=== PATIENT | male | born 1985 | race Caucasian/White ===

== ENCOUNTER 2021-06-15 16:42 | Inpatient (IN) | payer OTHER ==
[2021-06-15] MEDS ORDERED: MAGNESIUM HYDROX 2400MG/30ML ORAL SUSPENSION 30 ML CUP PO PRN (19:14)
[2021-06-15] MEDS ORDERED: P-EPHED 60MG/TRIPROLIDI 2.5MG TABLET PO PRN (19:14)
[2021-06-15] MEDS ORDERED: ACETAMINOPHEN 325 MG TABLET (FP) PO PRN (19:14)
[2021-06-15] MEDS ORDERED: guaiFENesin 200 MG/10 ML 10 ML UNIT-DOSE CUPS PO PRN (19:14)
[2021-06-15] MEDS ORDERED: MAGNESIUM CITRATE 300 ML BOTTLE PO PRN (19:14)
[2021-06-15] MEDS ORDERED: LOPERAMIDE HCL 2 MG CAPSULE PO PRN (19:14)
[2021-06-15] MEDS ORDERED: MAG HYDROX/AL HYDROX/SIMETH 30 ML UNIT-DOSE CUP PO PRN (19:14)
[2021-06-15 19:35] VITALS: BMI 23.1
[2021-06-15] MEDS: MELATONIN 5 MG TABLETS PO SCH (21:12)
[2021-06-15] MEDS: hydrOXYzine PAMOATE 25 MG CAPSULE (FP) PO SCH (21:13)
[2021-06-15] MEDS: IBUPROFEN 400 MG TABLET (FP) PO PRN (21:13)
[2021-06-15] MEDS: NICOTINE POLACRILEX 2 MG GUM BC PRN (21:13)
[2021-06-15] MEDS: THIAMINE HCL 100 MG TABLET (FP) PO SCH (21:13)
[2021-06-15] MEDS: NICOTINE 7 MG/24 HOURS TOPICAL PATCH TD SCH (21:14)
[2021-06-15] MEDS: NICOTINE 21 MG/24 HOURS TOPICAL PATCH TD SCH (21:14)
[2021-06-16] MEDS: hydrOXYzine PAMOATE 25 MG CAPSULE (FP) PO SCH ×5 (06:40→21:08)
[2021-06-16] MEDS: PRENATAL VITAMINS W/ FOLIC ACID TABLET (FP) PO SCH (10:15)
[2021-06-16] MEDS: NICOTINE 21 MG/24 HOURS TOPICAL PATCH TD SCH (10:15)
[2021-06-16] MEDS: NICOTINE POLACRILEX 2 MG GUM BC PRN ×3 (10:16→21:08)
[2021-06-16] MEDS: NICOTINE 7 MG/24 HOURS TOPICAL PATCH TD SCH (10:16)
[2021-06-16 10:32] LABS: HEMATOCRIT 40.3 % (35.4-49); HEMOGLOBIN 13.7 GM/dL (11.7-16.9); MCH 28.4 pg (25.7-33.7); MCHC 33.9 g/dl (32.0-35.9); MEAN CELL VOLUME 83.7 fl (80-96); MEAN PLT VOLUME 8.2 fl (7.5-11.1); PLATELET COUNT 308 10^3/uL (134-434); RBC 4.82 M/mm3 (4.00-5.60); RDW 14.2 % (11.9-15.9)
[2021-06-16] MEDS: BUPRENORPHINE/NALOXONE 12 MG-3 MG SL FILM PACKET SL SCH (10:45)
[2021-06-16 10:50] LABS: PH,URINE 7.5 (5.0-8.0); URINE APPEARANCE CLEAR; URINE BILIRUBIN NEGATIVE (NEGATIVE); URINE COLOR YELLOW; URINE GLUCOSE (UA) NEGATIVE (NEGATIVE); URINE KETONE NEGATIVE (NEGATIVE); URINE LEUK ESTERASE NEGATIVE (NEGATIVE); URINE NITRITE NEGATIVE (NEGATIVE); URINE PROTEIN NEGATIVE (NEGATIVE); URINE UROBILINOGEN 0.2 mg/dL (0.2-1.0)
[2021-06-16 10:59] LABS: ALBUMIN 4.1 g/dl (3.4-5.0)
[2021-06-16 11:00] LABS: BLOOD UREA NITROGEN 10.6 mg/dL (7-18); CALCIUM 9.7 mg/dL (8.5-10.1)
[2021-06-16 11:03] LABS: CREATININE 0.8 mg/dL (0.55-1.3)
[2021-06-16 11:04] LABS: BILIRUBIN,TOTAL 0.4 mg/dL (0.2-1); TOT PROT 7.2 g/dl (6.4-8.2)
[2021-06-16] MEDS: LURASIDONE HCL 40 MG TABLET PO SCH (14:42)
[2021-06-16] MEDS: THIAMINE HCL 100 MG TABLET (FP) PO SCH (21:07)
[2021-06-16] MEDS: MELATONIN 5 MG TABLETS PO SCH (21:07)
[2021-06-16] MEDS: QUEtiapine FUMARATE 100 MG TABLET (FP) PO SCH (21:08)
[2021-06-17] MEDS: NICOTINE POLACRILEX 2 MG GUM BC PRN ×2 (06:24→15:15)
[2021-06-17] MEDS: hydrOXYzine PAMOATE 25 MG CAPSULE (FP) PO SCH (06:24)
[2021-06-17] MEDS ORDERED: FLUoxetine HCL 10 MG CAPSULE ONE (08:38)
[2021-06-17] MEDS ORDERED: FLUoxetine HCL 20 MG CAPSULE ONE (08:38)
[2021-06-17] MEDS ORDERED: hydrOXYzine PAMOATE 25 MG CAPSULE (FP) PO PRN (08:59)
[2021-06-17] MEDS ORDERED: FLUoxetine HCL 20 MG CAPSULE PO SCH (10:00)
[2021-06-17] MEDS: FLUOXETINE HCL 40 MG, FLUOXETINE HCL 10 MG PO SCH (10:10)
[2021-06-17] MEDS: BUPRENORPHINE/NALOXONE 12 MG-3 MG SL FILM PACKET SL SCH (10:11)
[2021-06-17] MEDS: NICOTINE 21 MG/24 HOURS TOPICAL PATCH TD SCH (10:11)
[2021-06-17] MEDS: LURASIDONE HCL 40 MG TABLET PO SCH (10:11)
[2021-06-17] MEDS: NICOTINE 7 MG/24 HOURS TOPICAL PATCH TD SCH (10:12)
[2021-06-17] MEDS: PRENATAL VITAMINS W/ FOLIC ACID TABLET (FP) PO SCH (10:12)
[2021-06-17] MEDS: THIAMINE HCL 100 MG TABLET (FP) PO SCH (22:55)
[2021-06-17] MEDS: MELATONIN 5 MG TABLETS PO SCH (22:55)
[2021-06-17] MEDS: QUEtiapine FUMARATE 100 MG TABLET (FP) PO SCH (22:55)
[2021-06-18] MEDS: NICOTINE POLACRILEX 2 MG GUM BC PRN ×4 (07:00→21:17)
[2021-06-18] MEDS ORDERED: FLUoxetine HCL 20 MG CAPSULE ONE (08:49)
[2021-06-18] MEDS ORDERED: FLUoxetine HCL 10 MG CAPSULE ONE (08:50)
[2021-06-18] MEDS: BUPRENORPHINE/NALOXONE 12 MG-3 MG SL FILM PACKET SL SCH (09:38)
[2021-06-18] MEDS: LURASIDONE HCL 40 MG TABLET PO SCH (09:39)
[2021-06-18] MEDS: NICOTINE 21 MG/24 HOURS TOPICAL PATCH TD SCH (09:39)
[2021-06-18] MEDS: NICOTINE 7 MG/24 HOURS TOPICAL PATCH TD SCH (09:39)
[2021-06-18] MEDS: FLUOXETINE HCL 40 MG, FLUOXETINE HCL 10 MG PO SCH (09:39)
[2021-06-18] MEDS: PRENATAL VITAMINS W/ FOLIC ACID TABLET (FP) PO SCH (09:39)
[2021-06-18] MEDS: IBUPROFEN 400 MG TABLET (FP) PO PRN (09:40)
[2021-06-18] MEDS: QUEtiapine FUMARATE 100 MG TABLET (FP) PO SCH (21:16)
[2021-06-18] MEDS: MELATONIN 5 MG TABLETS PO SCH (21:16)
[2021-06-18] MEDS: THIAMINE HCL 100 MG TABLET (FP) PO SCH (21:16)
[2021-06-19] MEDS ORDERED: FLUoxetine HCL 10 MG CAPSULE ONE (08:45)
[2021-06-19] MEDS ORDERED: FLUoxetine HCL 20 MG CAPSULE ONE (08:45)
[2021-06-19] MEDS: LURASIDONE HCL 40 MG TABLET PO SCH (09:51)
[2021-06-19] MEDS: NICOTINE 7 MG/24 HOURS TOPICAL PATCH TD SCH (09:51)
[2021-06-19] MEDS: PRENATAL VITAMINS W/ FOLIC ACID TABLET (FP) PO SCH (09:51)
[2021-06-19] MEDS: FLUOXETINE HCL 40 MG, FLUOXETINE HCL 10 MG PO SCH (09:51)
[2021-06-19] MEDS: NICOTINE 21 MG/24 HOURS TOPICAL PATCH TD SCH (09:51)
[2021-06-19] MEDS: BUPRENORPHINE/NALOXONE 12 MG-3 MG SL FILM PACKET SL SCH (09:51)
[2021-06-19] MEDS: NICOTINE POLACRILEX 2 MG GUM BC PRN ×4 (09:53→21:27)
[2021-06-19] MEDS: QUEtiapine FUMARATE 100 MG TABLET (FP) PO SCH (21:26)
[2021-06-19] MEDS: THIAMINE HCL 100 MG TABLET (FP) PO SCH (21:27)
[2021-06-19] MEDS: MELATONIN 5 MG TABLETS PO SCH (21:27)
[2021-06-20] MEDS: NICOTINE 21 MG/24 HOURS TOPICAL PATCH TD SCH (09:39)
[2021-06-20] MEDS: PRENATAL VITAMINS W/ FOLIC ACID TABLET (FP) PO SCH (09:39)
[2021-06-20] MEDS: FLUOXETINE HCL 40 MG, FLUOXETINE HCL 10 MG PO SCH (09:39)
[2021-06-20] MEDS: BUPRENORPHINE/NALOXONE 12 MG-3 MG SL FILM PACKET SL SCH (09:39)
[2021-06-20] MEDS: NICOTINE 7 MG/24 HOURS TOPICAL PATCH TD SCH (09:40)
[2021-06-20] MEDS: LURASIDONE HCL 40 MG TABLET PO SCH (09:40)
[2021-06-20] MEDS: NICOTINE POLACRILEX 2 MG GUM BC PRN ×5 (09:41→21:20)
[2021-06-20] MEDS: MELATONIN 5 MG TABLETS PO SCH (21:16)
[2021-06-20] MEDS: THIAMINE HCL 100 MG TABLET (FP) PO SCH (21:16)
[2021-06-20] MEDS: BUPRENORPHINE/NALOXONE 2 MG/0.5 MG FILM PACKET SL SCH (21:17)
[2021-06-20] MEDS: QUEtiapine FUMARATE 100 MG TABLET (FP) PO SCH (21:17)
[2021-06-20] MEDS: IBUPROFEN 400 MG TABLET (FP) PO PRN (21:18)
[2021-06-21] MEDS ORDERED: FLUoxetine HCL 10 MG CAPSULE ONE (08:35)
[2021-06-21] MEDS ORDERED: FLUoxetine HCL 20 MG CAPSULE ONE (08:35)
[2021-06-21] MEDS: PRENATAL VITAMINS W/ FOLIC ACID TABLET (FP) PO SCH (09:58)
[2021-06-21] MEDS: BUPRENORPHINE/NALOXONE 12 MG-3 MG SL FILM PACKET SL SCH (09:58)
[2021-06-21] MEDS: FLUOXETINE HCL 40 MG, FLUOXETINE HCL 10 MG PO SCH (09:58)
[2021-06-21] MEDS: NICOTINE 21 MG/24 HOURS TOPICAL PATCH TD SCH (09:58)
[2021-06-21] MEDS: NICOTINE 7 MG/24 HOURS TOPICAL PATCH TD SCH (09:59)
[2021-06-21] MEDS: LURASIDONE HCL 40 MG TABLET PO SCH (09:59)
[2021-06-21] MEDS: NICOTINE POLACRILEX 2 MG GUM BC PRN ×4 (10:01→21:22)
[2021-06-21] MEDS: THIAMINE HCL 100 MG TABLET (FP) PO SCH (21:21)
[2021-06-21] MEDS: QUEtiapine FUMARATE 100 MG TABLET (FP) PO SCH (21:21)
[2021-06-21] MEDS: MELATONIN 5 MG TABLETS PO SCH (21:21)
[2021-06-21] MEDS: BUPRENORPHINE/NALOXONE 2 MG/0.5 MG FILM PACKET SL SCH (21:22)
[2021-06-22] MEDS ORDERED: FLUoxetine HCL 20 MG CAPSULE ONE (08:33)
[2021-06-22] MEDS ORDERED: FLUoxetine HCL 10 MG CAPSULE ONE (08:34)
[2021-06-22] MEDS: PRENATAL VITAMINS W/ FOLIC ACID TABLET (FP) PO SCH (09:46)
[2021-06-22] MEDS: LURASIDONE HCL 40 MG TABLET PO SCH (09:46)
[2021-06-22] MEDS: NICOTINE 21 MG/24 HOURS TOPICAL PATCH TD SCH (09:46)
[2021-06-22] MEDS: FLUOXETINE HCL 40 MG, FLUOXETINE HCL 10 MG PO SCH (09:46)
[2021-06-22] MEDS: NICOTINE 7 MG/24 HOURS TOPICAL PATCH TD SCH (09:46)
[2021-06-22] MEDS: BUPRENORPHINE/NALOXONE 12 MG-3 MG SL FILM PACKET SL SCH (09:46)
[2021-06-22] MEDS: NICOTINE POLACRILEX 2 MG GUM BC PRN ×3 (09:50→16:15)
[2021-06-22] MEDS: NICOTINE 10 MG CARTRIDGE (INHALER) IH PRN (18:31)
[2021-06-22] MEDS: IBUPROFEN 400 MG TABLET (FP) PO PRN (21:08)
[2021-06-22] MEDS: THIAMINE HCL 100 MG TABLET (FP) PO SCH (21:08)
[2021-06-22] MEDS: MELATONIN 5 MG TABLETS PO SCH (21:08)
[2021-06-22] MEDS: QUEtiapine FUMARATE 100 MG TABLET (FP) PO SCH (21:08)
[2021-06-22] MEDS: BUPRENORPHINE/NALOXONE 2 MG/0.5 MG FILM PACKET SL SCH (21:09)
[2021-06-23] MEDS: NICOTINE POLACRILEX 2 MG GUM BC PRN ×3 (06:33→16:13)
[2021-06-23] MEDS ORDERED: FLUoxetine HCL 20 MG CAPSULE ONE (08:54)
[2021-06-23] MEDS ORDERED: FLUoxetine HCL 10 MG CAPSULE ONE (08:54)
[2021-06-23] MEDS: NICOTINE 21 MG/24 HOURS TOPICAL PATCH TD SCH (10:09)
[2021-06-23] MEDS: NICOTINE 7 MG/24 HOURS TOPICAL PATCH TD SCH (10:09)
[2021-06-23] MEDS: BUPRENORPHINE/NALOXONE 12 MG-3 MG SL FILM PACKET SL SCH (10:09)
[2021-06-23] MEDS: FLUOXETINE HCL 40 MG, FLUOXETINE HCL 10 MG PO SCH (10:09)
[2021-06-23] MEDS: PRENATAL VITAMINS W/ FOLIC ACID TABLET (FP) PO SCH (10:09)
[2021-06-23] MEDS: NICOTINE 10 MG CARTRIDGE (INHALER) IH PRN (10:10)
[2021-06-23] MEDS: LURASIDONE HCL 40 MG TABLET PO SCH (10:10)
[2021-06-23] MEDS: QUEtiapine FUMARATE 100 MG TABLET (FP) PO SCH (21:26)
[2021-06-23] MEDS: THIAMINE HCL 100 MG TABLET (FP) PO SCH (21:27)
[2021-06-23] MEDS: MELATONIN 5 MG TABLETS PO SCH (21:27)
[2021-06-23] MEDS: IBUPROFEN 400 MG TABLET (FP) PO PRN (21:28)
[2021-06-23] MEDS: BUPRENORPHINE/NALOXONE 2 MG/0.5 MG FILM PACKET SL SCH (21:28)
[2021-06-24] MEDS ORDERED: FLUoxetine HCL 20 MG CAPSULE ONE (08:44)
[2021-06-24] MEDS ORDERED: FLUoxetine HCL 10 MG CAPSULE ONE (08:45)
[2021-06-24] MEDS: PRENATAL VITAMINS W/ FOLIC ACID TABLET (FP) PO SCH (09:59)
[2021-06-24] MEDS: BUPRENORPHINE/NALOXONE 12 MG-3 MG SL FILM PACKET SL SCH (09:59)
[2021-06-24] MEDS: NICOTINE 21 MG/24 HOURS TOPICAL PATCH TD SCH (09:59)
[2021-06-24] MEDS: FLUOXETINE HCL 40 MG, FLUOXETINE HCL 10 MG PO SCH (09:59)
[2021-06-24] MEDS: NICOTINE 7 MG/24 HOURS TOPICAL PATCH TD SCH (09:59)
[2021-06-24] MEDS: LURASIDONE HCL 40 MG TABLET PO SCH (10:00)
[2021-06-24] MEDS: NICOTINE 10 MG CARTRIDGE (INHALER) IH PRN (10:00)
[2021-06-24] MEDS: NICOTINE POLACRILEX 2 MG GUM BC PRN ×3 (13:59→20:02)
[2021-06-24] MEDS: MELATONIN 5 MG TABLETS PO SCH (21:24)
[2021-06-24] MEDS: THIAMINE HCL 100 MG TABLET (FP) PO SCH (21:24)
[2021-06-24] MEDS: QUEtiapine FUMARATE 100 MG TABLET (FP) PO SCH (21:24)
[2021-06-24] MEDS: BUPRENORPHINE/NALOXONE 2 MG/0.5 MG FILM PACKET SL SCH (21:25)
[2021-06-25] MEDS: NICOTINE POLACRILEX 2 MG GUM BC PRN ×5 (06:33→21:45)
[2021-06-25] MEDS ORDERED: FLUoxetine HCL 10 MG CAPSULE ONE (09:03)
[2021-06-25] MEDS ORDERED: FLUoxetine HCL 20 MG CAPSULE ONE (09:03)
[2021-06-25] MEDS: PRENATAL VITAMINS W/ FOLIC ACID TABLET (FP) PO SCH (09:41)
[2021-06-25] MEDS: BUPRENORPHINE/NALOXONE 12 MG-3 MG SL FILM PACKET SL SCH (09:41)
[2021-06-25] MEDS: NICOTINE 21 MG/24 HOURS TOPICAL PATCH TD SCH (09:41)
[2021-06-25] MEDS: FLUOXETINE HCL 40 MG, FLUOXETINE HCL 10 MG PO SCH (09:42)
[2021-06-25] MEDS: NICOTINE 7 MG/24 HOURS TOPICAL PATCH TD SCH (09:42)
[2021-06-25] MEDS: LURASIDONE HCL 40 MG TABLET PO SCH (09:43)
[2021-06-25] MEDS: NICOTINE 10 MG CARTRIDGE (INHALER) IH PRN (12:45)
[2021-06-25] MEDS: THIAMINE HCL 100 MG TABLET (FP) PO SCH (21:27)
[2021-06-25] MEDS: MELATONIN 5 MG TABLETS PO SCH (21:27)
[2021-06-25] MEDS: QUEtiapine FUMARATE 100 MG TABLET (FP) PO SCH (21:27)
[2021-06-25] MEDS: BUPRENORPHINE/NALOXONE 2 MG/0.5 MG FILM PACKET SL SCH (21:28)
[2021-06-26] MEDS: NICOTINE POLACRILEX 2 MG GUM BC PRN ×5 (06:46→21:10)
[2021-06-26] MEDS ORDERED: FLUoxetine HCL 10 MG CAPSULE ONE (08:36)
[2021-06-26] MEDS ORDERED: FLUoxetine HCL 20 MG CAPSULE ONE (08:36)
[2021-06-26] MEDS: LURASIDONE HCL 40 MG TABLET PO SCH (09:39)
[2021-06-26] MEDS: FLUOXETINE HCL 40 MG, FLUOXETINE HCL 10 MG PO SCH (09:39)
[2021-06-26] MEDS: NICOTINE 21 MG/24 HOURS TOPICAL PATCH TD SCH (09:39)
[2021-06-26] MEDS: PRENATAL VITAMINS W/ FOLIC ACID TABLET (FP) PO SCH (09:39)
[2021-06-26] MEDS: BUPRENORPHINE/NALOXONE 12 MG-3 MG SL FILM PACKET SL SCH (09:39)
[2021-06-26] MEDS: NICOTINE 7 MG/24 HOURS TOPICAL PATCH TD SCH (09:40)
[2021-06-26] MEDS: NICOTINE 10 MG CARTRIDGE (INHALER) IH PRN ×3 (09:41→22:29)
[2021-06-26] MEDS: QUEtiapine FUMARATE 100 MG TABLET (FP) PO SCH (21:08)
[2021-06-26] MEDS: THIAMINE HCL 100 MG TABLET (FP) PO SCH (21:08)
[2021-06-26] MEDS: MELATONIN 5 MG TABLETS PO SCH (21:08)
[2021-06-26] MEDS: IBUPROFEN 400 MG TABLET (FP) PO PRN (21:09)
[2021-06-26] MEDS: BUPRENORPHINE/NALOXONE 2 MG/0.5 MG FILM PACKET SL SCH (21:09)
[2021-06-27] MEDS: NICOTINE POLACRILEX 2 MG GUM BC PRN ×4 (06:42→21:54)
[2021-06-27] MEDS ORDERED: FLUoxetine HCL 20 MG CAPSULE ONE (08:47)
[2021-06-27] MEDS ORDERED: FLUoxetine HCL 10 MG CAPSULE ONE (08:47)
[2021-06-27] MEDS: PRENATAL VITAMINS W/ FOLIC ACID TABLET (FP) PO SCH (10:15)
[2021-06-27] MEDS: FLUOXETINE HCL 40 MG, FLUOXETINE HCL 10 MG PO SCH (10:15)
[2021-06-27] MEDS: NICOTINE 21 MG/24 HOURS TOPICAL PATCH TD SCH (10:15)
[2021-06-27] MEDS: LURASIDONE HCL 40 MG TABLET PO SCH (10:15)
[2021-06-27] MEDS: BUPRENORPHINE/NALOXONE 12 MG-3 MG SL FILM PACKET SL SCH (10:15)
[2021-06-27] MEDS: NICOTINE 10 MG CARTRIDGE (INHALER) IH PRN ×3 (10:17→21:52)
[2021-06-27] MEDS: THIAMINE HCL 100 MG TABLET (FP) PO SCH (21:51)
[2021-06-27] MEDS: MELATONIN 5 MG TABLETS PO SCH (21:51)
[2021-06-27] MEDS: QUEtiapine FUMARATE 100 MG TABLET (FP) PO SCH (21:51)
[2021-06-27] MEDS: BUPRENORPHINE/NALOXONE 2 MG/0.5 MG FILM PACKET SL SCH (21:52)
[2021-06-28] MEDS ORDERED: FLUoxetine HCL 20 MG CAPSULE ONE (08:42)
[2021-06-28] MEDS ORDERED: FLUoxetine HCL 10 MG CAPSULE ONE (08:43)
[2021-06-28] MEDS: BUPRENORPHINE/NALOXONE 12 MG-3 MG SL FILM PACKET SL SCH (09:38)
[2021-06-28] MEDS: FLUOXETINE HCL 40 MG, FLUOXETINE HCL 10 MG PO SCH (09:39)
[2021-06-28] MEDS: LURASIDONE HCL 40 MG TABLET PO SCH (09:39)
[2021-06-28] MEDS: PRENATAL VITAMINS W/ FOLIC ACID TABLET (FP) PO SCH (09:39)
[2021-06-28] MEDS: NICOTINE 21 MG/24 HOURS TOPICAL PATCH TD SCH (09:39)
[2021-06-28] MEDS: NICOTINE POLACRILEX 2 MG GUM BC PRN ×4 (09:42→21:10)
[2021-06-28] MEDS: NICOTINE 10 MG CARTRIDGE (INHALER) IH PRN ×2 (11:54→15:37)
[2021-06-28] MEDS: THIAMINE HCL 100 MG TABLET (FP) PO SCH (21:08)
[2021-06-28] MEDS: MELATONIN 5 MG TABLETS PO SCH (21:08)
[2021-06-28] MEDS: QUEtiapine FUMARATE 100 MG TABLET (FP) PO SCH (21:08)
[2021-06-28] MEDS: BUPRENORPHINE/NALOXONE 2 MG/0.5 MG FILM PACKET SL SCH (21:09)
[2021-06-29] MEDS ORDERED: FLUoxetine HCL 10 MG CAPSULE ONE (09:04)
[2021-06-29] MEDS ORDERED: FLUoxetine HCL 20 MG CAPSULE ONE (09:04)
[2021-06-29] MEDS: PRENATAL VITAMINS W/ FOLIC ACID TABLET (FP) PO SCH (10:25)
[2021-06-29] MEDS: BUPRENORPHINE/NALOXONE 12 MG-3 MG SL FILM PACKET SL SCH (10:25)
[2021-06-29] MEDS: FLUOXETINE HCL 40 MG, FLUOXETINE HCL 10 MG PO SCH (10:26)
[2021-06-29] MEDS: NICOTINE 21 MG/24 HOURS TOPICAL PATCH TD SCH (10:26)
[2021-06-29] MEDS: NICOTINE 10 MG CARTRIDGE (INHALER) IH PRN ×3 (10:26→21:54)
[2021-06-29] MEDS: NICOTINE POLACRILEX 2 MG GUM BC PRN ×4 (10:26→22:09)
[2021-06-29] MEDS: LURASIDONE HCL 40 MG TABLET PO SCH (10:26)
[2021-06-29] MEDS: BUPRENORPHINE/NALOXONE 2 MG/0.5 MG FILM PACKET SL SCH ×2 (12:57→21:53)
[2021-06-29] MEDS: MELATONIN 5 MG TABLETS PO SCH (21:53)
[2021-06-29] MEDS: THIAMINE HCL 100 MG TABLET (FP) PO SCH (21:53)
[2021-06-29] MEDS: QUEtiapine FUMARATE 100 MG TABLET (FP) PO SCH (21:54)
[2021-06-29] MEDS: IBUPROFEN 400 MG TABLET (FP) PO PRN (21:55)
[2021-06-30] MEDS: BUPRENORPHINE/NALOXONE 12 MG-3 MG SL FILM PACKET SL SCH (06:30)
[2021-06-30] MEDS: NICOTINE POLACRILEX 2 MG GUM BC PRN ×4 (06:34→17:15)
[2021-06-30] MEDS ORDERED: FLUoxetine HCL 20 MG CAPSULE ONE (08:57)
[2021-06-30] MEDS ORDERED: FLUoxetine HCL 10 MG CAPSULE ONE (08:57)
[2021-06-30] MEDS: NICOTINE 10 MG CARTRIDGE (INHALER) IH PRN (09:00)
[2021-06-30] MEDS: PRENATAL VITAMINS W/ FOLIC ACID TABLET (FP) PO SCH (09:38)
[2021-06-30] MEDS: IBUPROFEN 400 MG TABLET (FP) PO PRN ×2 (09:39→21:04)
[2021-06-30] MEDS: LURASIDONE HCL 40 MG TABLET PO SCH (09:39)
[2021-06-30] MEDS: NICOTINE 21 MG/24 HOURS TOPICAL PATCH TD SCH (09:39)
[2021-06-30] MEDS: FLUOXETINE HCL 40 MG, FLUOXETINE HCL 10 MG PO SCH (09:39)
[2021-06-30] MEDS: BUPRENORPHINE/NALOXONE 2 MG/0.5 MG FILM PACKET SL SCH ×2 (11:46→21:05)
[2021-06-30] MEDS: MELATONIN 5 MG TABLETS PO SCH (21:02)
[2021-06-30] MEDS: QUEtiapine FUMARATE 100 MG TABLET (FP) PO SCH (21:03)
[2021-06-30] MEDS: THIAMINE HCL 100 MG TABLET (FP) PO SCH (21:03)
[2021-07-01] MEDS: BUPRENORPHINE/NALOXONE 12 MG-3 MG SL FILM PACKET SL SCH (06:43)
[2021-07-01] MEDS: NICOTINE POLACRILEX 2 MG GUM BC PRN ×5 (07:19→21:54)
[2021-07-01] MEDS ORDERED: FLUoxetine HCL 20 MG CAPSULE ONE (08:39)
[2021-07-01] MEDS ORDERED: FLUoxetine HCL 10 MG CAPSULE ONE (08:39)
[2021-07-01] MEDS: FLUOXETINE HCL 40 MG, FLUOXETINE HCL 10 MG PO SCH (10:28)
[2021-07-01] MEDS: NICOTINE 21 MG/24 HOURS TOPICAL PATCH TD SCH (10:28)
[2021-07-01] MEDS: PRENATAL VITAMINS W/ FOLIC ACID TABLET (FP) PO SCH (10:28)
[2021-07-01] MEDS: LURASIDONE HCL 40 MG TABLET PO SCH (10:29)
[2021-07-01] MEDS: BUPRENORPHINE/NALOXONE 2 MG/0.5 MG FILM PACKET SL SCH ×2 (12:40→21:53)
[2021-07-01] MEDS: NICOTINE 10 MG CARTRIDGE (INHALER) IH PRN (14:56)
[2021-07-01] MEDS: IBUPROFEN 400 MG TABLET (FP) PO PRN (21:52)
[2021-07-01] MEDS: QUEtiapine FUMARATE 100 MG TABLET (FP) PO SCH (21:53)
[2021-07-01] MEDS: THIAMINE HCL 100 MG TABLET (FP) PO SCH (21:53)
[2021-07-01] MEDS: MELATONIN 5 MG TABLETS PO SCH (21:53)
[2021-07-02] MEDS: BUPRENORPHINE/NALOXONE 12 MG-3 MG SL FILM PACKET SL SCH (06:33)
[2021-07-02] MEDS: NICOTINE POLACRILEX 2 MG GUM BC PRN ×5 (06:49→21:06)
[2021-07-02] MEDS ORDERED: FLUoxetine HCL 20 MG CAPSULE ONE (08:33)
[2021-07-02] MEDS ORDERED: FLUoxetine HCL 10 MG CAPSULE ONE (08:33)
[2021-07-02] MEDS: LURASIDONE HCL 40 MG TABLET PO SCH (09:40)
[2021-07-02] MEDS: FLUOXETINE HCL 40 MG, FLUOXETINE HCL 10 MG PO SCH (09:40)
[2021-07-02] MEDS: NICOTINE 21 MG/24 HOURS TOPICAL PATCH TD SCH (09:40)
[2021-07-02] MEDS: PRENATAL VITAMINS W/ FOLIC ACID TABLET (FP) PO SCH (09:40)
[2021-07-02] MEDS: NICOTINE 10 MG CARTRIDGE (INHALER) IH PRN ×3 (09:41→21:05)
[2021-07-02] MEDS: BUPRENORPHINE/NALOXONE 2 MG/0.5 MG FILM PACKET SL SCH ×2 (12:18→21:05)
[2021-07-02] MEDS: THIAMINE HCL 100 MG TABLET (FP) PO SCH (21:05)
[2021-07-02] MEDS: MELATONIN 5 MG TABLETS PO SCH (21:05)
[2021-07-02] MEDS: QUEtiapine FUMARATE 100 MG TABLET (FP) PO SCH (21:05)
[2021-07-03] MEDS: BUPRENORPHINE/NALOXONE 12 MG-3 MG SL FILM PACKET SL SCH (06:58)
[2021-07-03] MEDS: NICOTINE POLACRILEX 2 MG GUM BC PRN ×4 (06:59→21:44)
[2021-07-03] MEDS ORDERED: FLUoxetine HCL 20 MG CAPSULE ONE (08:32)
[2021-07-03] MEDS ORDERED: FLUoxetine HCL 10 MG CAPSULE ONE (08:32)
[2021-07-03] MEDS: NICOTINE 21 MG/24 HOURS TOPICAL PATCH TD SCH (10:25)
[2021-07-03] MEDS: PRENATAL VITAMINS W/ FOLIC ACID TABLET (FP) PO SCH (10:25)
[2021-07-03] MEDS: LURASIDONE HCL 40 MG TABLET PO SCH (10:25)
[2021-07-03] MEDS: NICOTINE 10 MG CARTRIDGE (INHALER) IH PRN ×3 (10:25→21:43)
[2021-07-03] MEDS: FLUOXETINE HCL 40 MG, FLUOXETINE HCL 10 MG PO SCH (10:25)
[2021-07-03] MEDS: IBUPROFEN 400 MG TABLET (FP) PO PRN (10:36)
[2021-07-03] MEDS: BUPRENORPHINE/NALOXONE 2 MG/0.5 MG FILM PACKET SL SCH ×2 (12:55→21:43)
[2021-07-03] MEDS: MELATONIN 5 MG TABLETS PO SCH (21:42)
[2021-07-03] MEDS: THIAMINE HCL 100 MG TABLET (FP) PO SCH (21:42)
[2021-07-03] MEDS: QUEtiapine FUMARATE 100 MG TABLET (FP) PO SCH (21:43)
[2021-07-04] MEDS: BUPRENORPHINE/NALOXONE 12 MG-3 MG SL FILM PACKET SL SCH (06:48)
[2021-07-04] MEDS: NICOTINE POLACRILEX 2 MG GUM BC PRN ×5 (06:49→21:07)
[2021-07-04] MEDS ORDERED: FLUoxetine HCL 20 MG CAPSULE ONE (08:32)
[2021-07-04] MEDS ORDERED: FLUoxetine HCL 10 MG CAPSULE ONE (08:33)
[2021-07-04] MEDS: LURASIDONE HCL 40 MG TABLET PO SCH (09:36)
[2021-07-04] MEDS: PRENATAL VITAMINS W/ FOLIC ACID TABLET (FP) PO SCH (09:36)
[2021-07-04] MEDS: NICOTINE 21 MG/24 HOURS TOPICAL PATCH TD SCH (09:37)
[2021-07-04] MEDS: FLUOXETINE HCL 40 MG, FLUOXETINE HCL 10 MG PO SCH (09:37)
[2021-07-04] MEDS: NICOTINE 10 MG CARTRIDGE (INHALER) IH PRN ×2 (09:38→19:37)
[2021-07-04] MEDS ORDERED: BUPRENORPHINE/NALOXONE 2 MG/0.5 MG FILM PACKET SL SCH (12:00)
[2021-07-04] MEDS: MELATONIN 5 MG TABLETS PO SCH (21:05)
[2021-07-04] MEDS: THIAMINE HCL 100 MG TABLET (FP) PO SCH (21:05)
[2021-07-04] MEDS: QUEtiapine FUMARATE 100 MG TABLET (FP) PO SCH (21:06)
[2021-07-05] MEDS ORDERED: BUPRENORPHINE/NALOXONE 12 MG-3 MG SL FILM PACKET SL SCH (06:00)
[2021-07-05] MEDS ORDERED: BUPRENORPHINE/NALOXONE 8 MG/2 MG FILM PACKET SL SCH (06:00)
[2021-07-05] MEDS: NICOTINE POLACRILEX 2 MG GUM BC PRN (06:45)
[2021-07-05 07:09] VITALS: BP 121/70; PULSE 63; TEMP 97.9
[2021-07-05] MEDS ORDERED: FLUoxetine HCL 10 MG CAPSULE ONE (08:45)
[2021-07-05] MEDS ORDERED: FLUoxetine HCL 20 MG CAPSULE ONE (08:45)
== END 2021-07-05 09:06 | disposition home or self-care (01) | DRG 772 ==
LOC: YASAS 16:42 → Y3W 19:47
PROVIDERS: ADMIT Allergy & Immunology; ATTEND Allergy & Immunology
PROC: HZ42ZZZ Group Counseling for Substance Abuse Treatment, Cognitive-Behavioral (ICD-10-PCS; principal; 2021-06-16)
DX: F11.20 Opioid dependence, uncomplicated (principal); F13.20 Sedative, hypnotic or anxiolytic dependence, uncomplicated; F17.210 Nicotine dependence, cigarettes, uncomplicated; F19.282 Other psychoactive substance dependence with psychoactive substance-induced sleep disorder; F31.9 Bipolar disorder, unspecified; G43.909 Migraine, unspecified, not intractable, without status migrainosus; Z86.19 Personal history of other infectious and parasitic diseases; Z51.81 Encounter for therapeutic drug level monitoring; Z79.899 Other long term (current) drug therapy; Z88.8 Allergy status to other drugs, medicaments and biological substances
CPT/HCPCS: 36415; 71046-TC-FY; 80053; 81003; 85027; 86780; 86803